=== PATIENT | female | born 1955 | race Caucasian/White ===

== ENCOUNTER → 2016-07-05 | Outpatient (CLI) | payer BC ==
[~2016-07-05] MED LIST: DOCU100C21; ESTR-28; LAMO100T12; LEVO750T23; MORP15TA; OMEP40CA30; OXYC-28; PREDNISONE; SULF-95; ZOLP-113
== END ==
LOC: WC.BC 12:42
DX: Z12.31 Encounter for screening mammogram for malignant neoplasm of breast (principal)
CPT/HCPCS: 77063; G0202